=== PATIENT | female | born 1970 | race Caucasian/White ===

== ENCOUNTER 2018-01-27 07:33 | Emergency (ER) | payer BC ==
[2018-01-27] MEDS ORDERED: Sodium Chloride 0.9% 1,000 ML IV ONE (07:51)
[2018-01-27] MEDS ORDERED: Alum Hydrox/Mag Hydrox/Simeth 15 ML, Metoclopramide 5 MG, Lidocaine 2% 5 ML PO ONE ×3 (07:51)
[2018-01-27] MEDS ORDERED: Pantoprazole 40 MG Vial IVPUSH ONE (07:51)
--- NOTE | 2018-01-27 07:53 | EDM.PDOC ---
ED HPI GENERAL MEDICAL PROBLEM - General Stated Complaint: STOMACH PAINS Time Seen by Provider: 01/27/18 07:52 Source of Information: Reports: Patient - History of Present Illness INITIAL COMMENTS - FREE TEXT/NARRATIVE: HISTORY AND PHYSICAL: History of present illness: [Patient presents with epigastric pain which has had off and on over the last year, she has had a couple of episodes of vomiting this morning with meals yesterday, a pot roast and chicken fajita both caused her to vomit after eating she is recently started potassium replacement 10 mEq which may contribute, however her symptoms did completely resolve with a GI cocktail this morning She is rated discomfort 2-4 out of 10 nonradiating in the epigastrium No distress whatsoever no fever no current nausea vomiting diarrhea constipation chest pain shortness breath headache dizziness palpitation no bowel or urine symptoms ] Review of systems: As per history of present illness and below otherwise all systems reviewed and negative. Past medical history: As per history of present illness and as reviewed below otherwise noncontributory. Surgical history: As per history of present illness and as reviewed below otherwise noncontributory. Social history: No reported history of drug or alcohol abuse. Family history: As per history of present illness and as reviewed below otherwise noncontributory. Physical exam: HEENT: Atraumatic, normocephalic, pupils reactive, negative for conjunctival pallor or scleral icterus, mucous membranes moist, throat clear, neck supple, nontender, trachea midline. Lungs: Clear to auscultation, breath sounds equal bilaterally, chest nontender. Heart: S1S2, regular, negative for clicks, rubs, or JVD. Abdomen: Soft, nondistended, nontender. Negative for masses or hepatosplenomegaly. Negative for costovertebral tenderness. Pelvis: Stable nontender. Genitourinary: Deferred. Rectal: Deferred. Extremities: Atraumatic, negative for cords or calf pain. Neurovascular unremarkable. Neuro: Awake, alert, oriented. Cranial nerves II through XII unremarkable. Cerebellum unremarkable. Motor and sensory unremarkable throughout. Exam nonfocal. Diagnostics: [CBC CMP UA lipase troponin EKG Right upper quadrant ultrasound ] Therapeutics: [ GI cocktail Continue Prilosec 40 mg daily-patient has been taking this medication but uses it only intermittently Sent back may benefit Consider HIDA scan testing if symptoms continue with primary care Impression: [ GERD Abdominal pain ] Definitive disposition and diagnosis as appropriate pending reevaluation and review of above. Epigastric Pain Score (Numeric/FACES): 4 - Related Data Allergies Allergy/AdvReac Type Severity Reaction Status Date / Time No Known Allergies Allergy Verified 01/27/18 07:47 Home Meds: Home Meds Lisinopril [Zestril] 40 mg PO DAILY 01/27/18 [History] Potassium Chloride [Klor-Con 10] 10 meq PO DAILY 01/27/18 [History] buPROPion HCl [Wellbutrin Xl] 150 mg PO DAILY 01/27/18 [History] hydroCHLOROthiazide [Hydrochlorothiazide] 25 mg PO DAILY 01/27/18 [History] ED ROS GENERAL - Review of Systems Review Of Systems: See Below ED EXAM, GENERAL - Physical Exam Exam: See Below Course - Vital Signs Last Recorded V/S: Last Vital Signs Temp 97.0 F 01/27/18 07:49 Pulse 112 H 01/27/18 07:49 Resp 16 01/27/18 07:49 BP 115/70 01/27/18 07:49 Pulse Ox 96 01/27/18 07:49 - Orders/Labs/Meds Orders: Active Orders 24 hr Category Date Time Status EKG Documentation Completion [RC] STAT Care 01/27/18 07:52 Active Labs: Laboratory Tests 01/27/18 01/27/18 Range/Units 08:15 08:15 WBC 14.41 H (4.0-11.0) K/uL RBC 5.44 (4.30-5.90) M/uL Hgb 18.4 H (12.0-16.0) g/dL Hct 51.8 H (36.0-46.0) % MCV 95.2 (80.0-98.0) fL MCH 33.8 H (27.0-32.0) pg MCHC 35.5 (31.0-37.0) g/dL RDW Std Deviation 45.9 (28.0-62.0) fl RDW Coeff of Wilfrido 13 (11.0-15.0) % Plt Count 293 (150-400) K/uL MPV 12.00 (7.40-12.00) fL Neut % (Auto) 72.6 (48.0-80.0) % Lymph % (Auto) 18.0 (16.0-40.0) % [place] % (Auto) 8.1 (0.0-15.0) % Eos % (Auto) 1.1 (0.0-7.0) % Baso % (Auto) 0.2 (0.0-1.5) % Neut # (Auto) 10.5 H (1.4-5.7) K/uL Lymph # (Auto) 2.6 H (0.6-2.4) K/uL [place] # (Auto) 1.2 H (0.0-0.8) K/uL Eos # (Auto) 0.2 (0.0-0.7) K/uL Baso # (Auto) 0.0 (0.0-0.1) K/uL Nucleated RBC % 0.0 /100WBC Nucleated RBCs # 0 K/uL Sodium 134 L (136-145) mmol/L Potassium 3.9 (3.5-5.1) mmol/L Chloride 96 L (98-107) mmol/L Carbon Dioxide 26.7 (21.0-32.0) mmol/L BUN 23 H (7.0-18.0) mg/dL Creatinine 1.6 H (0.6-1.0) mg/dL Est Cr Clr Drug Dosing 34.38 mL/min Estimated GFR (MDRD) 34.6 ml/min Glucose 135 H (74-106) mg/dL Calcium 10.4 H (8.5-10.1) mg/dL Total Bilirubin 0.8 (0.2-1.0) mg/dL AST 27 (15-37) IU/L ALT 41 (14-63) IU/L Alkaline Phosphatase 108 (46-116) U/L Troponin I < 0.050 (0.000-0.056) ng/mL Total Protein 8.9 H (6.4-8.2) g/dL Albumin 4.2 (3.4-5.0) g/dL Globulin 4.7 H (2.0-3.5) g/dL Albumin/Globulin Ratio 0.9 L (1.3-2.8) Lipase 112 (73-393) U/L Meds: Medications Discontinued Medications Generic Name Dose Route Start Last Admin Trade Name Freq PRN Reason Stop Dose Admin Al Hydroxide/Mg Hydroxide 15 0 ml 01/27/18 07:51 01/27/18 08:24 ml/ Metoclopramide HCl 5 mg/ PO 01/27/18 07:52 20 each Lidocaine HCl 5 ml ONETIME ONE Administration Sodium Chloride 1,000 mls @ 999 mls/hr 01/27/18 07:51 01/27/18 08:27 Normal Saline IV 01/27/18 08:51 999 mls/hr STAT ONE Administration Ketorolac Tromethamine 30 mg 01/27/18 08:55 01/27/18 09:35 Toradol IVPUSH 01/27/18 08:56 30 mg ONETIME ONE Administration Pantoprazole Sodium 80 mg 01/27/18 07:51 01/27/18 08:25 Protonix Iv IVPUSH 01/27/18 07:52 80 mg .BOLUS ONE Administration Departure - Departure Time of Disposition: : Disposition: Home, Self-Care 01 Condition: Good Clinical Impression: Abdominal pain, GERD (gastroesophageal reflux disease) - Discharge Information Referrals: PCP,None [Primary Care Provider] - Additional Instructions: Continue Prilosec 40 mg by mouth daily Zantac 150 mg 2 times daily may benefit Avoid triggers of acid reflux as discussed If symptoms persist or worsen or continue to be associated with fatty foods a HIDA scan may be recommended you can discuss this with your primary care physician Return if symptoms persist or worsen or new concerning symptoms develop The following information is given to patients seen in the emergency department who are being discharged to home. This information is to outline your options for follow-up care. We provide all patients seen in our emergency department with a follow-up referral. The need for follow-up, as well as the timing and circumstances, are variable depending upon the specifics of your emergency department visit. If you don't have a primary care physician on staff, we will provide you with a referral. We always advise you to contact your personal physician following an emergency department visit to inform them of the circumstance of the visit and for follow-up with them and/or the need for any referrals to a consulting specialist. The emergency department will also refer you to a specialist when appropriate. This referral assures that you have the opportunity for follow-up care with a specialist. All of these measure are taken in an effort to provide you with optimal care, which includes your follow-up. Under all circumstances we always encourage you to contact your private physician who remains a resource for coordinating your care. When calling for follow-up care, please make the office aware that this follow-up is from your recent emergency room visit. If for any reason you are refused follow-up, please contact the [facility] emergency department at and asked to speak to the emergency department charge nurse. - My Orders Last 24 Hours: My Active Orders 01/27/18 07:52 EKG Documentation Completion [RC] STAT - Assessment/Plan Last 24 Hours: My Active Orders 01/27/18 07:52 EKG Documentation Completion [RC] STAT
[2018-01-27 08:51] LABS: CHLORIDE,CL 96 mmol/L (98-107); SODIUM,NA 134 mmol/L (136-145)
[2018-01-27] MEDS ORDERED: Ketorolac 30 MG/ML SDV IVPUSH ONE (08:55)
--- NOTE | 2018-01-27 09:34 | US ---
EXAMINATION: Right upper quadrant ultrasound HISTORY: Pain COMPARISON: None TECHNIQUE: Grayscale and color Doppler imaging obtained of the right upper quadrant. FINDINGS: The visualized pancreas appears normal. The liver is normal in contour and mildly increased in generalized echotexture without a focal hepatic mass. Gallbladder wall thickness is normal. No pe richolecystic fluid or shadowing gallstones. The common bile duct measures 3 mm. The right kidney evens sures 10.6 cm [id number] without evidence hydronephrosis. IMPRESSION: 1. Mild fatty infiltration of the liver otherwise unremarkable right upper quadrant ultrasound.
== END 2018-01-27 10:04 | disposition home or self-care (01) ==
LOC: MW.ED 07:33
DX: K21.9 Gastro-esophageal reflux disease without esophagitis (principal); Z79.899 Other long term (current) drug therapy
CPT/HCPCS: 76705; 80053; 83690; 84484; 85025; 93005; 96361; 96374; 96375; 99284; A9270; C9113; J1885; J7040

== ENCOUNTER 2018-09-28 10:36 | Emergency (ER) | payer BC ==
[2018-09-28] MEDS ORDERED: Sodium Chloride 0.9% 1,000 ML IV SCH (11:00)
--- NOTE | 2018-09-28 11:01 | EDM.PDOC ---
ED HPI GENERAL MEDICAL PROBLEM - General Chief Complaint: Abdominal Pain Stated Complaint: SICK--WEAK, STOMACH PAIN Time Seen by Provider: 09/28/18 10:47 Source of Information: Reports: Patient History Limitations: Reports: No Limitations - History of Present Illness INITIAL COMMENTS - FREE TEXT/NARRATIVE: HISTORY AND PHYSICAL: History of present illness: Patient is a 48-year-old female who presents to the emergency room with complaints of a 3 day history of nausea, vomiting, diarrhea and generalized abdominal pain. She states she has been fatigued and not been doing much as she feels "run down". States she was seen at the clinic on Friday and put on amoxicillin for a sinus infection. Still continues to take the antibiotic. Today the nausea and vomiting has subsided but continues to have generalized weakness, diarrhea and generalized abdominal pain. Patient denies any fever, chills, headache, change in vision, syncope or near syncope. Denies any chest pain, back pain, shortness of breath or cough. Denies any constipation or dysuria. Has not noted any blood in urine or stool. Denies any chance of . Patient has been eating and drinking appropriately. Review of systems: As per history of present illness and below otherwise all systems reviewed and negative. Past medical history: As per history of present illness and as reviewed below otherwise noncontributory. Surgical history: As per history of present illness and as reviewed below otherwise noncontributory. Social history: See social history for further information Family history: As per history of present illness and as reviewed below otherwise noncontributory. Physical exam: General: Well-developed and well-nourished 48 rolled female. Alert and oriented. Nontoxic appearing and in no acute distress. HEENT: Atraumatic, normocephalic, pupils equal and reactive bilaterally, negative for conjunctival pallor or scleral icterus, mucous membranes moist, TMs normal bilaterally, throat clear, neck supple, nontender, trachea midline. No drooling or trismus noted. No meningeal signs. No hot potato voice noted. Lungs: Clear to auscultation, breath sounds equal bilaterally, chest nontender. Heart: S1S2, regular rate and rhythm without overt murmur Abdomen: Soft, nondistended, diffuse generalized abdominal pain throughout. Negative for masses or hepatosplenomegaly. Left sided costovertebral tenderness. Pelvis: Stable nontender. Genitourinary: Deferred. Rectal: Deferred. Skin: Intact, warm, dry. No lesions or rashes noted. Extremities: Atraumatic, moves all extremities per self without difficulty or deficits, negative for cords or calf pain. Neurovascular unremarkable. Neuro: Awake, alert, oriented. Cranial nerves II through XII unremarkable. Cerebellum unremarkable. Motor and sensory unremarkable throughout. Exam nonfocal. Notes: Heterogeneous enhancement of the kidneys bilaterally, correlate for pyelonephritis. There is nonobstructing nephrolithiasis bilaterally. Severe fatty infiltration of the liver. Did talk with the patient about these findings , she does have left costovertebral tenderness equal treat as a pyelonephritis. We discussed signs and symtpomst that would prompt her to return to the ED. She would like to be discharged to home. Will try to obtain a stool study at home as she hasn't been able to give stool sample here. Supportive care measures were reviewed and discussed. Voices understanding and is agreeable to plan of care. Denies any further questions or concerns at this time. Diagnostics: CBC, CMP, UA, stool studies, lipase, orthostatic vital signs, EKG Therapeutics: IV fluids Prescription: Stool Studies Cipro Tramadol Impression: Diarrhea, unspecified Pyelonephritis Plan: 1. Stop Amoxicillin. Please bring back a stool study if your diarrhea does not resolve as we discussed. 2. Continue to monitor for signs of improvement. If your symptoms do not resolve , new symptoms develop, or symptoms worsen - please return to the ED. 3. Follow up with your primary care provider as we discussed. Return to the ED as needed as discussed. Definitive disposition and diagnosis as appropriate pending reevaluation and review of above. abdomen Pain Score (Numeric/FACES): 4 - Related Data Allergies Allergy/AdvReac Type Severity Reaction Status Date / Time No Known Allergies Allergy Verified 01/27/18 07:47 Home Meds: Home Meds Amoxicillin 1 tab PO BID 09/28/18 [History] Dextroamphetamine/Amphetamine [Adderall] 30 mg PO DAILY 09/28/18 [History] Lisinopril/Hydrochlorothiazide [Lisinopril-Hctz 20-12.5 mg Tab] 1 each PO DAILY 09/28/18 [History] Past Medical History Cardiovascular History: Reports: High Cholesterol, Hypertension Gastrointestinal History: Reports: GERD Psychiatric History: Reports: ADHD - Infectious Disease History Infectious Disease History: Reports: Mumps - Past Surgical History Female Surgical History: Reports: Section Social & Family History - Family History Family Medical History: Noncontributory - Tobacco Use Smoking Status *Q: Current Every Day Smoker Years of Tobacco use: 30 Packs/Tins Daily: 1 - Caffeine Use Caffeine Use: Reports: Coffee Caffeine Use Comment: 1c/other day - Recreational Drug Use Recreational Drug Use: No ED ROS GENERAL - Review of Systems Review Of Systems: ROS reveals no pertinent complaints other than HPI. ED EXAM, GI/ABD - Physical Exam Exam: See Below (See dictation) Course - Vital Signs Last Recorded V/S: Last Vital Signs Temp 96.5 F 09/28/18 10:49 Pulse 101 H 09/28/18 10:49 Resp 18 09/28/18 10:49 BP 119/83 09/28/18 10:49 Pulse Ox 97 09/28/18 10:49 - Orders/Labs/Meds Orders: Active Orders 24 hr Category Date Time Status EKG Documentation Completion [RC] STAT Care 09/28/18 10:53 Active CDIFF TOX A+B [OP] Stat Lab 09/28/18 10:54 Ordered CULTURE STOOL + CAMPY+SHIGATOX [RM] Stat Lab 09/28/18 10:54 Ordered OVA & PARASITES BY IMMUNOASSAY [MREF] Stat Lab 09/28/18 10:54 Ordered Sodium Chloride 0.9% [Normal Saline] 1,000 ml Med 09/28/18 11:00 Active IV ASDIRECTED cefTRIAXone [Rocephin in Dextrose,Iso-Osm 1 GM/50 ML] 1 Med 09/28/18 13:08 Active gm Premix Bag 1 bag IV ONETIME Medication Orders Sodium Chloride (Normal Saline) 1,000 mls @ 999 mls/hr IV ASDIRECTED KAYLYNN Last Admin: 09/28/18 11:19 Dose: 999 mls/hr Ceftriaxone Sodium/Dextrose 1 (gm/ Premix) 50 mls @ 100 mls/hr IV ONETIME ONE Stop: 09/28/18 13:37 Last Admin: 09/28/18 13:25 Dose: 100 mls/hr Labs: Laboratory Tests 09/28/18 09/28/18 09/28/18 Range/Units 10:55 11:15 11:15 WBC 13.44 H (4.0-11.0) K/uL RBC 4.90 (4.30-5.90) M/uL Hgb 17.8 H (12.0-16.0) g/dL Hct 50.0 H (36.0-46.0) % MCV 102.0 H (80.0-98.0) fL MCH 36.3 H (27.0-32.0) pg MCHC 35.6 (31.0-37.0) g/dL RDW Std Deviation 52.5 (28.0-62.0) fl RDW Coeff of Wilfr[place] 14 (11.0-15.0) % Plt Count 212 (150-400) K/uL MPV 13.00 H (7.40-12.00) fL Neut % (Auto) 68.1 (48.0-80.0) % Lymph % (Auto) 20.0 (16.0-40.0) % [place] % (Auto) 10.9 (0.0-15.0) % Eos % (Auto) 0.7 (0.0-7.0) % Baso % (Auto) 0.3 (0.0-1.5) % Neut # (Auto) 9.2 H (1.4-5.7) K/uL Lymph # (Auto) 2.7 H (0.6-2.4) K/uL [place] # (Auto) 1.5 H (0.0-0.8) K/uL Eos # (Auto) 0.1 (0.0-0.7) K/uL Baso # (Auto) 0.0 (0.0-0.1) K/uL Nucleated RBC % 0.0 /100WBC Nucleated RBCs # 0 K/uL Sodium 136 (136-145) mmol/L Potassium 3.5 (3.5-5.1) mmol/L Chloride 94 L (98-107) mmol/L Carbon Dioxide 27.7 (21.0-32.0) mmol/L BUN 12 (7.0-18.0) mg/dL Creatinine 1.3 H (0.6-1.0) mg/dL Est Cr Clr Drug Dosing 41.86 mL/min Estimated GFR (MDRD) 43.7 ml/min Glucose 145 H (74-106) mg/dL Calcium 9.8 (8.5-10.1) mg/dL Total Bilirubin 0.9 (0.2-1.0) mg/dL AST 111 H (15-37) IU/L ALT 105 H (14-63) IU/L Alkaline Phosphatase 109 (46-116) U/L Total Protein 8.0 (6.4-8.2) g/dL Albumin 3.8 (3.4-5.0) g/dL Globulin 4.2 H (2.6-4.0) g/dL Albumin/Globulin Ratio 0.9 (0.9-1.6) Lipase 139 (73-393) U/L Urine Color YELLOW Urine Appearance CLEAR Urine pH 6.5 (5.0-8.0) Ur Specific [place] 1.015 (1.001-1.035) Urine Protein 30 H (NEGATIVE) mg/dL Urine Glucose (UA) NEGATIVE (NEGATIVE) mg/dL Urine Ketones TRACE H (NEGATIVE) mg/dL Urine Occult Blood LARGE H (NEGATIVE) Urine Nitrite NEGATIVE (NEGATIVE) Urine Bilirubin SMALL H (NEGATIVE) Urine Urobilinogen 1.0 (<2.0) EU/dL Ur Leukocyte Esterase NEGATIVE (NEGATIVE) Urine RBC 30-40 (0-2/HPF) Urine WBC 2-4 (0-5/HPF) Ur Epithelial Cells OCCASIONAL (NONE-FEW) Amorphous Sediment LIGHT (NEGATIVE) Urine Bacteria FEW (NEGATIVE) Hyaline Casts 8-10 (0-2/LPF) Urine Mucus NOT SEEN (NONE-MOD) Urine HCG, Qual (NEGATIVE) 09/28/18 Range/Units 11:59 WBC (4.0-11.0) K/uL RBC (4.30-5.90) M/uL Hgb (12.0-16.0) g/dL Hct (36.0-46.0) % MCV (80.0-98.0) fL MCH (27.0-32.0) pg MCHC (31.0-37.0) g/dL RDW Std Deviation (28.0-62.0) fl RDW Coeff of [place] (11.0-15.0) % Plt Count (150-400) K/uL MPV (7.40-12.00) fL Neut % (Auto) (48.0-80.0) % Lymph % (Auto) (16.0-40.0) % [place] % (Auto) (0.0-15.0) % Eos % (Auto) (0.0-7.0) % Baso % (Auto) (0.0-1.5) % Neut # (Auto) (1.4-5.7) K/uL Lymph # (Auto) (0.6-2.4) K/uL [place] # (Auto) (0.0-0.8) K/uL Eos # (Auto) (0.0-0.7) K/uL Baso # (Auto) (0.0-0.1) K/uL Nucleated RBC % /100WBC Nucleated RBCs # K/uL Sodium (136-145) mmol/L Potassium (3.5-5.1) mmol/L Chloride (98-107) mmol/L Carbon Dioxide (21.0-32.0) mmol/L BUN (7.0-18.0) mg/dL Creatinine (0.6-1.0) mg/dL Est Cr Clr Drug Dosing mL/min Estimated GFR (MDRD) ml/min Glucose (74-106) mg/dL Calcium (8.5-10.1) mg/dL Total Bilirubin (0.2-1.0) mg/dL AST (15-37) IU/L ALT (14-63) IU/L Alkaline Phosphatase (46-116) U/L Total Protein (6.4-8.2) g/dL Albumin (3.4-5.0) g/dL Globulin (2.6-4.0) g/dL Albumin/Globulin Ratio (0.9-1.6) Lipase (73-393) U/L Urine Color Urine Appearance Urine pH (5.0-8.0) Ur Specific [place] (1.001-1.035) Urine Protein (NEGATIVE) mg/dL Urine Glucose (UA) (NEGATIVE) mg/dL Urine Ketones (NEGATIVE) mg/dL Urine Occult Blood (NEGATIVE) Urine Nitrite (NEGATIVE) Urine Bilirubin (NEGATIVE) Urine Urobilinogen (<2.0) EU/dL Ur Leukocyte Esterase (NEGATIVE) Urine RBC (0-2/HPF) Urine WBC (0-5/HPF) Ur Epithelial Cells (NONE-FEW) Amorphous Sediment (NEGATIVE) Urine Bacteria (NEGATIVE) Hyaline Casts (0-2/LPF) Urine Mucus (NONE-MOD) Urine HCG, Qual NEGATIVE (NEGATIVE) Meds: Medications Generic Name Dose Route Start Last Admin Trade Name Freq PRN Reason Stop Dose Admin Sodium Chloride 1,000 mls @ 999 mls/hr 09/28/18 11:00 09/28/18 11:19 Normal Saline IV 999 mls/hr ASDIRECTED KAYLYNN Administration Ceftriaxone Sodium/Dextrose 1 50 mls @ 100 mls/hr 09/28/18 13:08 09/28/18 13: 25 gm/ Premix IV 09/28/18 13:37 100 mls/hr ONETIME ONE Administration Discontinued Medications Generic Name Dose Route Start Last Admin Trade Name Freq PRN Reason Stop Dose Admin Iopamidol 70 ml 09/28/18 12:24 09/28/18 12:25 Isovue Multipack-370 (76%) IVPUSH 09/28/18 12:25 70 ml ONETIME STA Administration Departure - Departure Time of Disposition: 13:18 Disposition: Home, Self-Care 01 Clinical Impression: Pyelonephritis Diarrhea Qualifiers: Diarrhea type: unspecified type Qualified Code(s): R19.7 - Diarrhea, unspecified - Discharge Information Instructions: Pyelonephritis, Adult, Diarrhea, Adult, [id number] Referrals: PCP,Unknown [Primary Care Provider] - Forms: ED Department Discharge Additional Instructions: The following information is given to patients seen in the emergency department who are being discharged to home. This information is to outline your options for follow-up care. We provide all patients seen in our emergency department with a follow-up referral. The need for follow-up, as well as the timing and circumstances, are variable depending upon the specifics of your emergency department visit. If you don't have a primary care physician on staff, we will provide you with a referral. We always advise you to contact your personal physician following an emergency department visit to inform them of the circumstance of the visit and for follow-up with them and/or the need for any referrals to a consulting specialist. The emergency department will also refer you to a specialist when appropriate. This referral assures that you have the opportunity for follow-up care with a specialist. All of these measure are taken in an effort to provide you with optimal care, which includes your follow-up. Under all circumstances we always encourage you to contact your private physician who remains a resource for coordinating your care. When calling for follow-up care, please make the office aware that this follow-up is from your recent emergency room visit. If for any reason you are refused follow-up, please contact the [facility] Emergency Department at and asked to speak to the emergency department charge nurse. [facility] [address] [place] [address] [facility] [address] [place] [id number] 1. Stop Amoxicillin. Please bring back a stool study if your diarrhea does not resolve as we discussed. 2. Continue to monitor for signs of improvement. If your symptoms do not resolve , new symptoms develop, or symptoms worsen - please return to the ED. 3. Follow up with your primary care provider as we discussed. Return to the ED as needed as discussed. - My Orders Last 24 Hours: My Active Orders 09/28/18 10:53 EKG Documentation Completion [RC] STAT 09/28/18 10:54 CDIFF TOX A+B [OP] Stat CULTURE STOOL + CAMPY+SHIGATOX [RM] Stat OVA & PARASITES BY IMMUNOASSAY [MREF] Stat 09/28/18 11:00 Sodium Chloride 0.9% [Normal Saline] 1,000 ml IV ASDIRECTED 09/28/18 13:08 cefTRIAXone [Rocephin in Dextrose,Iso-Osm 1 GM/50 ML] 1 gm Premix Bag 1 bag IV ONETIME - Assessment/Plan Last 24 Hours: My Active Orders 09/28/18 10:53 EKG Documentation Completion [RC] STAT 09/28/18 10:54 CDIFF TOX A+B [OP] Stat CULTURE STOOL + CAMPY+SHIGATOX [RM] Stat OVA & PARASITES BY IMMUNOASSAY [MREF] Stat 09/28/18 11:00 Sodium Chloride 0.9% [Normal Saline] 1,000 ml IV ASDIRECTED 09/28/18 13:08 cefTRIAXone [Rocephin in Dextrose,Iso-Osm 1 GM/50 ML] 1 gm Premix Bag 1 bag IV ONETIME
[2018-09-28] MEDS ORDERED: Iopamidol 755 MG/ML 500 ML Multipack Bottle IVPUSH STA (12:24)
--- NOTE | 2018-09-28 13:00 | CT ---
CT of the abdomen and pelvis with contrast. HISTORY: Pain TECHNIQUE: Axial CT images were obtained of the abdomen and pelvis following administration of 70 mL of Isovue-370 in the right antecubital fossa without complication. Coronal and sagittal reconstructions obtained. FINDINGS: The lung bases are clear, no pleural effusion. There is severe fatty infiltration of the liver. The liver, adrenal glands, and pancreas appear normal. The gallbladder is normal. There is no bulky retroperitoneal lymphadenopathy or abdominal ascites. The kidneys demonstrate heterogeneous enhancement bilaterally most likely a striated appearance. There is a nonobstructing stone within the lower pole of the left kidney. The large and small bowel are normal in caliber without evidence of obstruction. No focal pericolonic inflammation or stranding. Mild diverticulosis without evidence of diverticulitis. The appendix is normal. No bulky pelvic lymphadenopathy or free pelvic fluid. Urinary bladder is normal. Uterus and ovaries are grossly unremarkable. No suspicious osseous abnormalities identified. IMPRESSION: 1. Heterogeneous enhancement of the kidneys bilaterally, correlate for pyelonephritis. 2. Nonobstructing nephrolithiasis bilaterally. 3. Severe fatty infiltration of the liver.
[2018-09-28] MEDS ORDERED: cefTRIAXone 1 GM in Premix Bag 1 BAG IV ONE (13:08)
== END 2018-09-28 14:10 | disposition home or self-care (01) ==
LOC: MW.ED 10:36
DX: N12 Tubulo-interstitial nephritis, not specified as acute or chronic (principal); R19.7 Diarrhea, unspecified; F17.210 Nicotine dependence, cigarettes, uncomplicated; I10 Essential (primary) hypertension; E78.00 Pure hypercholesterolemia, unspecified; K21.9 Gastro-esophageal reflux disease without esophagitis; Z79.899 Other long term (current) drug therapy
CPT/HCPCS: 36415; 74177; 80053; 81001; 81025; 83690; 85025; 93005; 96361; 96365; 99284; J0696; J7040; Q9967

== ENCOUNTER 2020-09-21 10:44 | Emergency (ER) | payer BC ==
--- NOTE | 2020-09-21 10:54 | EDM.PDOC ---
ED HPI GENERAL MEDICAL PROBLEM - General Stated Complaint: SWELLING Time Seen by Provider: 09/21/20 10:49 Source of Information: Reports: Patient History Limitations: Reports: No Limitations - History of Present Illness INITIAL COMMENTS - FREE TEXT/NARRATIVE: HISTORY AND PHYSICAL: History of present illness: The patient is a 50-year-old female with a history of untreated hypertension, attention deficit disorder and COPD, who presents to the emergency department with complaints of her body swelling since Friday and shortness of breath which started yesterday. The patient reports that her shortness of breath is worse upon exertion. It does get better when she rests but does not go completely away. She reports that she has been taking her Advair without fail. She was diagnosed with the COPD the last year after pulmonary function test. She has an associated right shoulder pain that comes and goes with the shortness of breath. She has not taken any [id number] medications for this pain. The patient has feelings of her heart racing which she states is an everyday occurrence. She does not find that abnormal. Patient states that her abdomen and lower extremities have been swelling. She states her abdomen feels tight and does not have pain but the discomfort from the tightness. Patient denies any kind of cardiac diagnoses. She states that she has not taking her hypertensive meds since May. Her primary care is Dr. Nj which she saw 3 months ago with a normal exam. 2 weeks ago she went to urgent care with complaints of increased green sinus drainage cough, sore throat and vomiting. She was prescribed doxycycline for 10 days which she did complete. She had a negative COVID 19 test at that time. The patient reports that she was diagnosed as prediabetic 1 year ago. The is unsure as the status of her A1c. Patient denies any fever, chills, headache, change in vision, syncope or near syncope. Denies any chest pain, back pain, cough. Denies any abdominal pain, nausea, vomiting, diarrhea, constipation or dysuria. Has not noted any blood in urine or stool. Patient has been eating and drinking appropriately. Patient is hemodynamically stable with a blood pressure of 199/108 and a heart rate of 121. Is afebrile with a temperature of 97.6. Review of systems: As per history of present illness and below otherwise all systems reviewed and negative. Past medical history: As per history of present illness and as reviewed below otherwise noncontributory. Surgical history: As per history of present illness and as reviewed below otherwise noncontribu tory. Social history: See social history for further information Family history: As per history of present illness and as reviewed below otherwise noncontributory. Physical exam: General: Well developed and well nourished. Alert and orientated x 3. Nontoxic in appearance and in no acute distress. Vital signs are stable and have been reviewed by me. Nursing notes were reviewed. HEENT: Atraumatic, normocephalic, pupils equal and reactive bilaterally, negative for conjunctival pallor or scleral icterus, mucous membranes dry, throat clear, neck supple, nontender, trachea midline. No drooling or trismus noted. No meningeal signs. No hot potato voice noted. Lungs: Clear to auscultation bilaterally. No wheezes, rales, or rhonchi. Chest nontender. Normal work of breathing, no accessory muscles used. Heart: S1S2, sinus tach without overt murmur, gallops, or rubs. No JVD. 2+ bilateral peripheral edema. Abdomen: RUQ & LUQ firm and distended and nontender, RLQ & LLQ soft and nontender. Normoactive bowel sounds. Negative for masses or costovertebral tenderness. Skin: Intact, warm, dry. Noted hands with dryness and mild erythema. No lesions or rashes noted. Hematologic: No petechiae or purpra. Mucosa appropriate color and normal nail bed color and refill. Extremities: Atraumatic, moves all extremities per self without difficulty or deficits, negative for cords or calf pain. Neurovascular unremarkable. Neuro: Awake, alert, oriented. Cranial nerves II through XII unremarkable. Cerebellum unremarkable. Motor and sensory unremarkable throughout. Exam nonfocal. Psychiatric: Mood and affect are appropriate. Normal thought process. Answering questions appropriately. Notes: *This patient was seen and evaluated during the 2019 SARS-CoV-2 novel coronavirus pandemic period. Community viral transmission is ongoing at time of this encounter and the emergency department is operating under pandemic response procedures. After discussion examination the patient is agreeable to labs, EKG, CXR. The patient has noted dry and red hands which she associates with her employment. 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 This is a chronic condition not associated with today's complaint. CBC: WBC 11.15, red blood cell 3.31, hemoglobin 13.1. CMP: Glucose 204, calcium 7.5, magnesium 1.4, AST 135, ALT 80, alkaline phosphatase 274, troponin less than 0.050. CXR FINDINGS: Cardiovascular and mediastinum: Heart size and vasculature are normal in caliber and appearance. Mediastinum is within normal limits. Lungs and pleural space: Lungs are clear. No sign of infiltrate or mass. No sign of pleural effusion. No pneumothorax. Bones and soft tissues: No significant findings. BNP is 34. COVID-19 swab is negative. I will treat her fluid overload status with 20 mg IV Lasix. Her hypomagnesemia of 1.4 with a magnesium oxide 400 mg p.o. and her hypocalcemia of 7.5 with calcium gluconate 1 g IV push. I will give hydrochlorothiazide 25mg for her hypertension. The patient is agreeable with this plan. The patient was up to void and the nurse felt her shortness of breath was somewhat improved however the patient was quite tremulous. The patient's respiration are easier and the patient feels much better. The patient is still hypertensive with a blood pressure of 185/107. Charge the patient with instructions to monitor her blood pressure on a daily basis. to take her hydrochlorothiazide on a daily basis and to with Dr. Nj. The patient is agreeable to the plan. I have talked with the patient about today's findings, in addition to providing specific details for plan of care. Reassessment at the time of disposition demonstrates that the patient is in no acute distress. The patient is stable for discharge, counseling was provided and we discussed in great detail signs and symptoms that would prompt them to return to the Emergency Department. Medication, follow up and supportive care measures were reviewed and discussed. Voices understanding and is agreeable to plan of care. Denies any further questions or concerns at this time. Diagnostics: CBC, CMP, troponin, magnesium, BNP, CXR, EKG, COVID-19 Therapeutics: Exam oxide 400 mg p.o., calcium gluconate 1 g IV, Lasix 20 mg IV, hydrochlorothiazide 25 mg p.o. Prescription: Hydrochlorothiazide 25 mg p.o. daily Impression: Fluid overload, HTN, hypomagnesemia, hypocalcemia Plan: 1. You were evaluated today on an emergent basis. Your's of shortness of breath and increased blood pressure were evaluated today with lab work, an EKG, a chest x-ray and a COVID-19 swab your calcium was low as well as your magnesium and you were treated accordingly for that. We checked your cardiac labs which were negative. Your chest x-ray was also negative. You do have fluid overload as evidenced by the in your feet, lower legs, and abdomen. You will need to take your hydrochlorothiazide on a daily basis and try to take it at the same time every day. This will decrease your blood pressure slowly and take your fluid. I want you to check your blood pressure daily. You check your blood pressure by sitting for no less than 10 minutes, feet flat on the floor, and your arm must be resting on a flat surface prior to taking your blood pressure. You can take it at different times a day but also record your heart rate. 2. You can alternate Tylenol and ibuprofen as needed for pain and fever management. 3. We encourage you to follow up with your primary care provider and/or recommended specialist in the next few days for re-evaluation and further care/management. 4. If your symptoms should worsen, new symptoms develop or any of the signs and symptoms we discussed should arise please return to the emergency room or call 911 (if needed). Definitive disposition and diagnosis as appropriate pending reevaluation and review of above. - Related Data Allergies Allergy/AdvReac Type Severity Reaction Status Date / Time No Known Allergies Allergy Verified 09/21/20 11:02 Home Meds: Home Meds Dextroamphetamine/Amphetamine [Adderall] 30 mg PO DAILY 09/28/18 [History] hydroCHLOROthiazide [Hydrochlorothiazide] 25 mg PO DAILY 30 Days #30 tablet 09/21/20 [Rx] Past Medical History Cardiovascular History: Reports: High Cholesterol, Hypertension Gastrointestinal History: Reports: GERD Psychiatric History: Reports: ADHD - Infectious Disease History Infectious Disease History: Reports: Mumps - Past Surgical History Female Surgical History: Reports: Section Social & Family History - Family History Family Medical History: No Pertinent Family History - Caffeine Use Caffeine Use: Reports: Coffee Caffeine Use Comment: 1c/other day ED ROS GENERAL - Review of Systems Review Of Systems: Comprehensive ROS is negative, except as noted in HPI. ED EXAM, GENERAL - Physical Exam Exam: See Below (See dictation) Course - Vital Signs Last Recorded V/S: Last Vital Signs Temp 97.6 F 09/21/20 11:06 Pulse 112 H 09/21/20 14:09 Resp 17 09/21/20 14:09 BP 185/107 H 09/21/20 14:09 Pulse Ox 98 09/21/20 14:09 - Orders/Labs/Meds Labs: Laboratory Tests 09/21/20 09/21/20 09/21/20 Range/Units 11:04 11:04 11:04 WBC 11.15 H (4.0-11.0) K/uL RBC 3.31 L (4.30-5.90) M/uL Hgb 13.2 (12.0-16.0) g/dL Hct 38.2 (36.0-46.0) % MCV 115.4 H (80.0-98.0) fL MCH 39.9 H (27.0-32.0) pg MCHC 34.6 (31.0-37.0) g/dL RDW Std Deviation 62.9 H (28.0-62.0) fl RDW Coeff of Wilfrido 15 (11.0-15.0) % Plt Count 290 (150-400) K/uL MPV 12.50 H (7.40-12.00) fL Neut % (Auto) 76.1 (48.0-80.0) % Lymph % (Auto) 14.3 L (16.0-40.0) % [place] % (Auto) 7.8 (0.0-15.0) % Eos % (Auto) 1.6 (0.0-7.0) % Baso % (Auto) 0.2 (0.0-1.5) % Neut # (Auto) 8.5 H (1.4-5.7) K/uL Lymph # (Auto) 1.6 (0.6-2.4) K/uL [place] # (Auto) 0.9 H (0.0-0.8) K/uL Eos # (Auto) 0.2 (0.0-0.7) K/uL Baso # (Auto) 0.0 (0.0-0.1) K/uL Nucleated RBC % 0.1 /100WBC Nucleated RBCs # 0 K/uL Sodium 140 (136-145) mmol/L Potassium 4.2 (3.5-5.1) mmol/L Chloride 102 (98-107) mmol/L Carbon Dioxide 23.1 (21.0-32.0) mmol/L BUN 6 L (7.0-18.0) mg/dL Creatinine 0.6 (0.6-1.0) mg/dL Est Cr Clr Drug Dosing 113.16 mL/min Estimated GFR (MDRD) > 60.0 ml/min Glucose 204 H (74-106) mg/dL Calcium 7.5 L (8.5-10.1) mg/dL Magnesium 1.4 L (1.8-2.4) mg/dL Total Bilirubin 0.6 (0.2-1.0) mg/dL AST 135 H (15-37) IU/L ALT 80 H (14-63) IU/L Alkaline Phosphatase 274 H (46-116) U/L Troponin I < 0.050 (0.000-0.056) ng/mL B-Natriuretic Peptide 34 (<100) PG/ML Total Protein 7.5 (6.4-8.2) g/dL Albumin 2.9 L (3.4-5.0) g/dL Globulin 4.6 H (2.6-4.0) g/dL Albumin/Globulin Ratio 0.6 L (0.9-1.6) SARS-CoV-2 RNA (ELZBIETA) (NEGATIVE) 09/21/20 Range/Units 11:40 WBC (4.0-11.0) K/uL RBC (4.30-5.90) M/uL Hgb (12.0-16.0) g/dL Hct (36.0-46.0) % MCV (80.0-98.0) fL MCH (27.0-32.0) pg MCHC (31.0-37.0) g/dL RDW Std Deviation (28.0-62.0) fl RDW Coeff of Wilfrido (11.0-15.0) % Plt Count (150-400) K/uL MPV (7.40-12.00) fL Neut % (Auto) (48.0-80.0) % Lymph % (Auto) (16.0-40.0) % [place] % (Auto) (0.0-15.0) % Eos % (Auto) (0.0-7.0) % Baso % (Auto) (0.0-1.5) % Neut # (Auto) (1.4-5.7) K/uL Lymph # (Auto) (0.6-2.4) K/uL [place] # (Auto) (0.0-0.8) K/uL Eos # (Auto) (0.0-0.7) K/uL Baso # (Auto) (0.0-0.1) K/uL Nucleated RBC % /100WBC Nucleated RBCs # K/uL Sodium (136-145) mmol/L Potassium (3.5-5.1) mmol/L Chloride (98-107) mmol/L Carbon Dioxide (21.0-32.0) mmol/L BUN (7.0-18.0) mg/dL Creatinine (0.6-1.0) mg/dL Est Cr Clr Drug Dosing mL/min Estimated GFR (MDRD) ml/min Glucose (74-106) mg/dL Calcium (8.5-10.1) mg/dL Magnesium (1.8-2.4) mg/dL Total Bilirubin (0.2-1.0) mg/dL AST (15-37) IU/L ALT (14-63) IU/L Alkaline Phosphatase (46-116) U/L Troponin I (0.000-0.056) ng/mL B-Natriuretic Peptide (<100) PG/ML Total Protein (6.4-8.2) g/dL Albumin (3.4-5.0) g/dL Globulin (2.6-4.0) g/dL Albumin/Globulin Ratio (0.9-1.6) SARS-CoV-2 RNA (ELZBIETA) NEGATIVE (NEGATIVE) Meds: Medications Discontinued Medications Generic Name Dose Route Start Last Admin Trade Name Freq PRN Reason Stop Dose Admin Calcium Gluconate 1 gm 09/21/20 12:21 09/21/20 12:40 Calcium Gluconate 10% 1 Gm/10 Ml Sdv IVPUSH 09/21/20 12:22 1 gm ONETIME ONE Administration Furosemide 20 mg 09/21/20 12:20 09/21/20 12:40 Furosemide 40 Mg/4 Ml Vial IVPUSH 09/21/20 12:21 20 mg NOW ONE Administration Hydrochlorothiazide 25 mg 09/21/20 12:23 09/21/20 12:40 Hydrochlorothiazide 25 Mg Tab PO 09/21/20 12:24 25 mg ONETIME ONE Administration Magnesium Oxide 400 mg 09/21/20 12:45 09/21/20 13:06 Magnesium Oxide 400 Mg Tab PO 09/21/20 12:46 400 mg ONETIME ONE Administration Departure - Departure Time of Disposition: 14:05 Disposition: Home, Self-Care 01 Condition: Good Clinical Impression: Hypomagnesemia, Hypocalcemia, Hypertension Fluid overload, unspecified Qualifiers: Hypervolemia type: unspecified Qualified Code(s): E87.70 - Fluid overload, unspecified - Discharge Information *PRESCRIPTION DRUG MONITORING PROGRAM REVIEWED*: Not Applicable *COPY OF PRESCRIPTION DRUG MONITORING REPORT IN PATIENT JAKE: Not Applicable Prescriptions: hydroCHLOROthiazide [Hydrochlorothiazide] 25 mg PO DAILY 30 Days #30 tablet Instructions: Hypertension, Adult, [id number], Edema, [id number], Managing Your Hypertension Referrals: Ja Johnson MD [Primary Care Provider] - Forms: ED Department Discharge Additional Instructions: The following information is given to patients seen in the emergency department who are being discharged to home. This information is to outline your options for follow-up care. We provide all patients seen in our emergency department with a follow-up referral. The need for follow-up, as well as the timing and circumstances, are variable depending upon the specifics of your emergency department visit. If you don't have a primary care physician on staff, we will provide you with a referral. We always advise you to contact your personal physician following an emergency department visit to inform them of the circumstance of the visit and for follow-up with them and/or the need for any referrals to a consulting specialist. The emergency department will also refer you to a specialist when appropriate. This referral assures that you have the opportunity for follow-up care with a specialist. All of these measure are taken in an effort to provide you with optimal care, which includes your follow-up. Under all circumstances we always encourage you to contact your private physician who remains a resource for coordinating your care. When calling for follow-up care, please make the office aware that this follow-up is from your recent emergency room visit. If for any reason you are refused follow-up, please contact the [facility] Emergency Department at and asked to speak to the emergency department charge nurse. [facility] - Primary [facility] [address] [place] [address] [facility] [address] [place] [address] Plan: 1. You were evaluated today on an emergent basis. Your's of shortness of breath and increased blood pressure were evaluated today with lab work, an EKG, a chest x-ray and a COVID-19 swab your calcium was low as well as your magnesium and you were treated accordingly for that. We checked your cardiac labs which were negative. Your chest x-ray was also negative. You do have fluid overload as evidenced by the in your feet, lower legs, and abdomen. You will need to take your hydrochlorothiazide on a daily basis and try to take it at the same time every day. This will decrease your blood pressure slowly and take your fluid. I want you to check your blood pressure daily. You check your blood pressure by sitting for no less than 10 minutes, feet flat on the floor, and your arm must be resting on a flat surface prior to taking your blood pressure. You can take it at different times a day but also record your heart rate. 2. You can alternate Tylenol and ibuprofen as needed for pain and fever management. 3. We encourage you to follow up with your primary care provider and/or recommended specialist in the next few days for re-evaluation and further care/management. 4. If your symptoms should worsen, new symptoms develop or any of the signs and symptoms we discussed should arise please return to the emergency room or call 911 (if needed). Sepsis Event Note (ED) - Focused Exam Vital Signs: Vital Signs Temp Pulse Resp BP Pulse Ox 09/21/20 14:09 112 H 17 185/107 H 98 09/21/20 12:38 114 H 16 175/94 H 97 09/21/20 12:18 115 H 16 179/89 H 98 09/21/20 11:58 96 16 193/97 H 96 09/21/20 11:38 116 H 16 190/103 H 97 09/21/20 11:06 97.6 F 121 H 18 199/106 H 97
--- NOTE | 2020-09-21 11:01 | PCM.EKG ---
#1 Interpretation EKG Date: 09/21/20 Time: 10:57 Rhythm: Other (sinus tachy) Rate (Beats/Min): 121 ST-T: Normal
[2020-09-21 11:45] LABS: BLOOD UREA NITROGEN,BUN 6 mg/dL (7.0-18.0); CARBON DIOXIDE,CO2 23.1 mmol/L (21.0-32.0); CHLORIDE,CL 102 mmol/L (98-107); GLUCOSE RANDOM 204 mg/dL (74-106); POTASSIUM,K 4.2 mmol/L (3.5-5.1); SODIUM,NA 140 mmol/L (136-145)
--- NOTE | 2020-09-21 11:52 | CR ---
INDICATION: SHORTNESS OF BREATH TECHNIQUE: Chest 1 view. COMPARISON: 03/04/19 FINDINGS: Cardiovascular and mediastinum: Heart size and vasculature are normal in caliber and appearance. Mediastinum is within normal limits. Lungs and pleural space: Lungs are clear. No sign of infiltrate or mass. No sign of pleural effusion. No pneumothorax. Bones and soft tissues: No significant findings. IMPRESSION: Unremarkable chest. Dictated by: Percy Ayoub MD @ 09/21/2020 11:50:19 (Electronically Signed)
[2020-09-21] MEDS ORDERED: Furosemide 40 MG/4 ML VIAL IVPUSH ONE (12:20)
[2020-09-21] MEDS ORDERED: Calcium Gluconate 10% 1 GM/10 ML SDV IVPUSH ONE (12:21)
[2020-09-21] MEDS ORDERED: Magnesium Oxide 400 MG Tab PO ONE ×2 (12:21→12:45)
[2020-09-21] MEDS ORDERED: Hydrochlorothiazide 25 MG Tab PO ONE (12:23)
== END 2020-09-21 14:14 | disposition home or self-care (01) ==
LOC: MW.ED 10:44
DX: E83.42 Hypomagnesemia (principal); E83.51 Hypocalcemia; I10 Essential (primary) hypertension; E87.70 Fluid overload, unspecified; J44.9 Chronic obstructive pulmonary disease, unspecified; Z20.822 Contact with and (suspected) exposure to COVID-19; Z79.899 Other long term (current) drug therapy
CPT/HCPCS: 71045; 80053; 83735; 83880; 84484; 85025; 87635; 96374; 96375; 99285; A9270; J0610; J1940; 93010; 99283; U0002

== ENCOUNTER 2021-09-08 01:28 | Emergency (ER) | payer BC ==
[2021-09-08] MEDS ORDERED: Morphine 2 MG/ML SYRINGE IVPUSH ONE (02:36)
[2021-09-08 03:09] LABS: BLOOD UREA NITROGEN,BUN 7 mg/dL (7.0-18.0); CHLORIDE,CL 99 mmol/L (98-107); GLUCOSE RANDOM 165 mg/dL (74-106); LIPASE 68 U/L (73-393); POTASSIUM,K 2.7 mmol/L (3.5-5.1); SODIUM,NA 142 mmol/L (136-145)
[2021-09-08] MEDS ORDERED: Potassium Chloride Riders 20 MEQ in Premix Bag 1 BAG IV ONE (03:22)
[2021-09-08] MEDS ORDERED: Sodium Chloride 0.9% 500 ML IV SCH (03:30)
[2021-09-08] MEDS ORDERED: Morphine 4 MG/ML VIAL IVPUSH ONE (04:08)
[2021-09-08] MEDS ORDERED: Potassium Chloride 20 MEQ Tab.ER PO ONE (04:08)
== END 2021-09-08 06:26 | disposition home or self-care (01) ==
LOC: MW.ED 01:28
DX: N13.2 Hydronephrosis with renal and ureteral calculous obstruction (principal); I10 Essential (primary) hypertension; Z79.899 Other long term (current) drug therapy; Z79.84 Long term (current) use of oral hypoglycemic drugs
CPT/HCPCS: 36415; 71045; 74176; 80053; 81001; 81025; 83605; 83690; 85025; 96365; 96366; 96375; 96376; 99284; A9270; J2270; J3480; J7040

== ENCOUNTER 2021-09-14 16:49 | Emergency (ER) | payer BC ==
[2021-09-14 20:32] LABS: BLOOD UREA NITROGEN,BUN 7 mg/dL (7.0-18.0); CARBON DIOXIDE,CO2 34.1 mmol/L (21.0-32.0); CHLORIDE,CL 102 mmol/L (98-107); GLUCOSE RANDOM 135 mg/dL (74-106); POTASSIUM,K 3.2 mmol/L (3.5-5.1); SODIUM,NA 144 mmol/L (136-145)
[2021-09-14] MEDS ORDERED: Magnesium Sulfate/Water 4 GM in Premix Bag 1 BAG IV ONE (20:48)
[2021-09-14] MEDS ORDERED: Potassium Chloride 20 MEQ Tab.ER PO ONE (20:48)
== END 2021-09-14 23:44 | disposition home or self-care (01) ==
LOC: MW.ED 16:49
DX: E83.42 Hypomagnesemia (principal); E87.6 Hypokalemia; E78.00 Pure hypercholesterolemia, unspecified; I10 Essential (primary) hypertension; K21.9 Gastro-esophageal reflux disease without esophagitis; J44.9 Chronic obstructive pulmonary disease, unspecified; E10.8 Type 1 diabetes mellitus with unspecified complications; Z72.0 Tobacco use; Z79.899 Other long term (current) drug therapy
CPT/HCPCS: 36415; 80053; 83735; 84100; 85025; 93005; 96365; 96366; 99285; A9270; J3475

== ENCOUNTER 2023-08-29 15:53 | Emergency (ER) | payer OTHER ==
[2023-08-29] MEDS: Sodium Chloride 0.9% 10 ML Syringe FLUSH PRN (16:35)
[2023-08-29] MEDS: Magnesium Sulfate/Water 2 GM in Premix Bag 1 BAG IV STA (16:35)
[2023-08-29 16:36] LABS: BASE EXCESS VENOUS 2.6 (-2.0-3.0); PH,VENOUS 7.3 (7.31-7.41)
[2023-08-29] MEDS: Albuterol 0.083% 2.5 MG/3 ML Neb Soln NEB STA (16:36)
[2023-08-29] MEDS: Albuterol/Ipratropium 3.0-0.5 MG/3 ML Neb Soln NEB STA (16:36)
[2023-08-29] MEDS: Sodium Chloride 0.9% 2.5 ML Syringe FLUSH PRN (16:36)
[2023-08-29 16:38] LABS: HEMATOCRIT 44.7 % (37.0-47.0); HEMOGLOBIN 15.1 g/dL (12.0-16.0); MEAN CORPUSCULAR HEMOGLOBIN 30.6 pg (28.0-32.0); MEAN CORPUSCULAR HGB CONC 33.8 g/dL (32.0-36.0); MEAN CORPUSCULAR VOLUME 90.5 fL (83.0-99.0); NRBC ABSOLUTE 0.18 K/uL (0.00-0.02); NRBC PERCENT 1.2 /100WBC (0.0-0.2); PLATELET COUNT,PLT 223 K/uL (150-400); RED BLOOD CELL COUNT 4.94 M/uL (4.10-5.30); WHITE BLOOD CELL COUNT,WBC 15.03 K/uL (3.9-11.3)
[2023-08-29 16:52] LABS: INR 1.51 (0.86-1.11); PTT,PARTIAL THROMBOPLSTIN TIME 26.8 SEC (23.9-30.7)
[2023-08-29] MEDS: cefTRIAXone 2 GM in Sodium Chloride 0.9% 50 ML IV STA (17:05)
[2023-08-29 17:11] LABS: CORONAVIRUS COVID-19 NAA NEGATIVE (NEGATIVE); INFLUENZA A NAA POSITIVE (NEGATIVE); INFLUENZA B NAA NEGATIVE (NEGATIVE); RESPIRATORY SYNCYTIAL VIR NAA NEGATIVE (NEGATIVE)
[2023-08-29 17:30] LABS: LYMPHOCYTES PERCENT MAN 4 % (24-44); MONOCYTES PERCENT MAN 8 % (0-8); SEG NEUTROPHILS ABSOLUTE MAN 13.23 K/uL (1.80-7.70); SEG NEUTROPHILS PERCENT MAN 88 % (41-71)
[2023-08-29] MEDS: Azithromycin 500 MG in Sodium Chloride 0.9% 250 ML IV STA (17:39)
[2023-08-29 17:42] LABS: BASE EXCESS ARTERIAL 1.7 (-2.0-3.0); BICARBONATE,ARTERIAL 28 mEq/L (22-26); PCO2 ARTERIAL 51 mmHG (35-45); PO2 ARTERIAL 53 mmHG (80-105)
[2023-08-29 17:59] LABS: A/G RATIO 0.6 (0.9-1.6); ALBUMIN 2.9 g/dL (3.4-5.0); BILIRUBIN TOTAL 3.2 mg/dL (0.2-1.0); CALCIUM 8.8 mg/dL (8.5-10.1); CARBON DIOXIDE,CO2 29.2 mmol/L (21.0-32.0); CREATININE 3.5 mg/dL (0.6-1.0); EST CRCL DRUG DOSING (CG) 14.7 mL/min; POTASSIUM,K 4.6 mmol/L (3.5-5.1); PROTEIN TOTAL,TP 7.5 g/dL (6.4-8.2)
[2023-08-29 18:04] LABS: LACTIC ACID 3.8 mmol/L (0.4-2.0)
[2023-08-29 18:13] LABS: COLOR,URINE YELLOW; GLUCOSE,URINE NEGATIVE (NEGATIVE); KETONES,URINE TRACE mg/dL (NEGATIVE); LEUKOCYTE ESTERASE,URINE MODERATE (NEGATIVE); NITRITE,URINE POSITIVE (NEGATIVE); OCCULT BLOOD,URINE MODERATE (NEGATIVE); PH,URINE 5.5 (5.0-8.0); PROTEIN,URINE TRACE mg/dL (NEGATIVE)
[2023-08-29 18:20] LABS: APPEARANCE,URINE SLT CLOUDY; BILIRUBIN,URINE SMALL (NEGATIVE)
[2023-08-29 18:21] LABS: BACTERIA,URINE 2+ (NEGATIVE); MUCUS,URINE LIGHT (NONE-MOD); SQUAMOUS EPITHELIAL CELLS,UR MODERATE; WBC,URINE 15-20 (0-5/HPF)
[2023-08-29] MEDS: Oseltamivir 75 MG Cap PO ONE (18:23)
[2023-08-29] MEDS: Furosemide 40 MG/4 ML VIAL IVPUSH ONE (19:21)
[2023-08-29 19:35] LABS: AMPHETAMINES SCREEN, URINE PRESUMPTIVE POSITIVE (CUTOFF=500); BARBITURATE SCREEN,URINE NEGATIVE (CUTOFF=200); BENZODIAZEPINES SCREEN,URINE NEGATIVE (CUTOFF=150); BUPRENORPHINE SCREEN,URINE NEGATIVE (CUTOFF=10); METHADONE SCREEN, URINE NEGATIVE (CUTOFF=200); METHAMPHETAMINES SCREEN, URINE NEGATIVE (CUTOFF=500); OXYCODONE SCREEN,URINE NEGATIVE (CUT0FF=100); PCP SCREEN,URINE NEGATIVE (CUTOFF=25); THC SCREEN,URINE 20 NG/ML NEGATIVE (CUTOFF=50)
[2023-08-29 21:01] LABS: BASE EXCESS ARTERIAL 1.6 (-2.0-3.0); BICARBONATE,ARTERIAL 28 mEq/L (22-26); PCO2 ARTERIAL 48 mmHG (35-45); PO2 ARTERIAL 70 mmHG (80-105)
[2023-08-29] MEDS: fentaNYL/Normal Saline 2,500 MCG in Premix Bag 1 BAG IV PRN (23:08)
[2023-08-29] MEDS: Etomidate 2 MG/ML 20 ML SDV IVPUSH ONE (23:08)
[2023-08-29] MEDS: propofoL 100 ML IV SCH (23:09)
[2023-08-29] MEDS: Acetaminophen 325 MG Supp ONE (23:10)
[2023-08-29] MEDS: Succinylcholine 200 MG/10 ML MDV IV STA (23:10)
[2023-08-29] MEDS: VANCOmycin 2 GM/400 ML 2 GM in Premix Bag 1 BAG IV ONE (23:43)
[2023-08-29] MEDS: Acetaminophen 650 MG Supp RECTAL STA (23:51)
[2023-08-30] MEDS: Norepinephrine Bit/D5W Premix 250 ML IV SCH (00:04)
[2023-08-30] MEDS: Albuterol 0.083% 2.5 MG/3 ML Neb Soln ONE (00:12)
[2023-08-30] MEDS: Albuterol/Ipratropium 3.0-0.5 MG/3 ML Neb Soln ONE (00:12)
[2023-08-30] MEDS: Rocuronium 100 MG/10 ML MDV IVPUSH ONE (00:14)
[2023-08-30 01:04] LABS: BASE EXCESS VENOUS 4.4 (-2.0-3.0); PH,VENOUS 7.42 (7.31-7.41)
== END 2023-08-30 01:19 ==
LOC: MW.ED 15:53
DX: J96.01 Acute respiratory failure with hypoxia (principal); J12.81 Pneumonia due to SARS-associated coronavirus; J10.08 Influenza due to other identified influenza virus with other specified pneumonia; J91.8 Pleural effusion in other conditions classified elsewhere; K76.7 Hepatorenal syndrome; R79.89 Other specified abnormal findings of blood chemistry; N30.01 Acute cystitis with hematuria; E87.70 Fluid overload, unspecified; K80.20 Calculus of gallbladder without cholecystitis without obstruction; R18.8 Other ascites; I10 Essential (primary) hypertension; E78.00 Pure hypercholesterolemia, unspecified; K21.9 Gastro-esophageal reflux disease without esophagitis; E10.9 Type 1 diabetes mellitus without complications; F17.210 Nicotine dependence, cigarettes, uncomplicated; I11.0 Hypertensive heart disease with heart failure; I50.9 Heart failure, unspecified; J44.0 Chronic obstructive pulmonary disease with (acute) lower respiratory infection; Z79.899 Other long term (current) drug therapy; Z79.84 Long term (current) use of oral hypoglycemic drugs
CPT/HCPCS: 0241U; 31500; 36415; 36556; 36600; 51702; 70450; 71045; 76705; 80053; 80305; 80307; 81001; 82140; 82803; 83605; 83690; 83880; 84484; 85025; 85610; 85730; 87040; 87086; 87088; 87186; 93005; 93970; 96365; 96366; 96367; 96368; 96375; 99291; 99292; A9270; J0330; J0456; J0696; J1940; J2704; J3370; J3475; J3490; J7050; 93010; J7620-GY

== ENCOUNTER 2024-01-08 00:16 | Emergency (ER) | payer MEDICAID ==
[2024-01-08] MEDS: Acetaminophen 325 MG Tab PO ONE (00:38)
[2024-01-08 00:41] LABS: BASOPHILS ABSOLUTE AUTO 0.07 K/uL (0.00-0.20); BASOPHILS PERCENT AUTO 0.3 % (0.0-1.0); EOSINOPHILS ABSOLUTE AUTO 0.03 K/uL (0.00-0.45); EOSINOPHILS PERCENT AUTO 0.1 % (0.0-6.0); HEMATOCRIT 52.3 % (37.0-47.0); HEMOGLOBIN 17.6 g/dL (12.0-16.0); IMMATURE GRAN PERCENT AUTO 0.5 % (0.0-0.4); LYMPHOCYTES ABSOLUTE AUTO 2.16 K/uL (1.00-4.80); LYMPHOCYTES PERCENT AUTO 10.3 % (24.0-44.0); MEAN CORPUSCULAR HEMOGLOBIN 29.5 pg (28.0-32.0); MEAN CORPUSCULAR HGB CONC 33.7 g/dL (32.0-36.0); MEAN CORPUSCULAR VOLUME 87.8 fL (83.0-99.0); MEAN PLATELET VOLUME 13.1 fL (9.4-12.3); MONOCYTES ABSOLUTE AUTO 1.46 K/uL (0.00-0.80); NEUTROPHILS ABSOLUTE AUTO 17.14 K/uL (1.80-7.70); NEUTROPHILS PERCENT AUTO 81.8 % (41.0-71.0); PLATELET COUNT,PLT 244 K/uL (150-400); RED BLOOD CELL COUNT 5.96 M/uL (4.10-5.30); WHITE BLOOD CELL COUNT,WBC 20.96 K/uL (3.9-11.3)
[2024-01-08 01:16] LABS: CORONAVIRUS COVID-19 NAA NEGATIVE (NEGATIVE); INFLUENZA A NAA NEGATIVE (NEGATIVE); INFLUENZA B NAA NEGATIVE (NEGATIVE); RESPIRATORY SYNCYTIAL VIR NAA NEGATIVE (NEGATIVE)
[2024-01-08 01:29] LABS: A/G RATIO 0.7 (0.9-1.6); ALBUMIN 3.3 g/dL (3.4-5.0); BILIRUBIN TOTAL 1.1 mg/dL (0.2-1.0); CALCIUM 9.6 mg/dL (8.5-10.1); CARBON DIOXIDE,CO2 26.9 mmol/L (21.0-32.0); EST CRCL DRUG DOSING (CG) 49.09 mL/min; POTASSIUM,K 3.4 mmol/L (3.5-5.1); PROTEIN TOTAL,TP 8.3 g/dL (6.4-8.2)
[2024-01-08] MEDS: cefTRIAXone 1 GM in Sodium Chloride 0.9% 50 ML IV ONE (03:45)
[2024-01-08 03:46] LABS: COLOR,URINE YELLOW; GLUCOSE,URINE NEGATIVE (NEGATIVE); KETONES,URINE NEGATIVE (NEGATIVE); LEUKOCYTE ESTERASE,URINE MODERATE (NEGATIVE); NITRITE,URINE POSITIVE (NEGATIVE); OCCULT BLOOD,URINE TRACE-INTACT (NEGATIVE); PROTEIN,URINE 30 mg/dL (NEGATIVE); UROBILINOGEN,URINE 0.2 EU/dL (<2.0)
[2024-01-08 03:47] LABS: APPEARANCE,URINE SLT CLOUDY; BILIRUBIN,URINE SMALL (NEGATIVE)
[2024-01-08 03:53] LABS: BACTERIA,URINE 2+ (NEGATIVE); MUCUS,URINE LIGHT (NONE-MOD); SQUAMOUS EPITHELIAL CELLS,UR FEW; WBC,URINE 20-30 (0-5/HPF)
[2024-01-08] MEDS: Acetaminophen 500 MG Tab PO ONE (05:15)
[2024-01-08] MEDS: Albuterol/Ipratropium 3.0-0.5 MG/3 ML Neb Soln NEB ONE (05:15)
[2024-01-08] MEDS: Ondansetron 4 MG/2 ML SDV IVPUSH ONE (05:22)
[2024-01-08] MEDS: Ondansetron 4 MG/2 ML SDV ONE (05:23)
[2024-01-08 05:29] LABS: BASE EXCESS VENOUS 4.2 (-2.0-3.0); PH,VENOUS 7.43 (7.31-7.41)
[2024-01-08] MEDS: Sodium Chloride 0.9% 500 ML IV STA (05:35)
[2024-01-08] MEDS: Sodium Chloride 0.9% 500 ML IV ONE (05:35)
[2024-01-08] MEDS: Ketorolac 30 MG/ML SDV IM ONE (06:56)
[2024-01-08] MEDS: Ketorolac 30 MG/ML SDV IVPUSH ONE (06:56)
== END 2024-01-08 07:14 ==
LOC: MW.ED 00:16
DX: J44.1 Chronic obstructive pulmonary disease with (acute) exacerbation (principal); N13.2 Hydronephrosis with renal and ureteral calculous obstruction; N30.01 Acute cystitis with hematuria; R50.81 Fever presenting with conditions classified elsewhere; R09.02 Hypoxemia; Z99.81 Dependence on supplemental oxygen; I11.0 Hypertensive heart disease with heart failure; I50.9 Heart failure, unspecified; K21.9 Gastro-esophageal reflux disease without esophagitis; E10.9 Type 1 diabetes mellitus without complications; Z79.84 Long term (current) use of oral hypoglycemic drugs; Z79.899 Other long term (current) drug therapy
CPT/HCPCS: 0241U; 36415; 71045; 71250; 74176; 80053; 81001; 82803; 83605; 83880; 84484; 85025; 87040; 93005; 96361; 96365; 96375; 99285; A9270; J0696; J1885; J2405; J3490; J7040; J7620-GY